=== PATIENT | female | born 1975 | race Hispanic/Latino ===

== ENCOUNTER 2017-12-21 11:31 | Inpatient (IN) | payer MEDICAID, SELFPAY ==
[2017-12-21 12:15] VITALS: BMI 32.1
[2017-12-21] MEDS ORDERED: Promethazine HCl 25 MG/ML VIAL IM PRN (12:38)
[2017-12-21] MEDS ORDERED: Ondansetron HCl/PF 4 MG/2 ML Vial IVP PRN (12:38)
[2017-12-21] MEDS ORDERED: Acetaminophen 500 MG TAB PO PRN (12:38)
[2017-12-21] MEDS ORDERED: Docusate 100 MG CAP PO PRN (12:38)
--- NOTE | 2017-12-21 12:46 | PDOC.LDHP ---
Labor and Delivery H&P Chief complaint: other (new-onset proteinuria, elev BP) HPI: Pt seen in [facility] this AM c/o severe bifrontal TINOCO last night that resolved with sleep, sudden leg edema, and found to have newly elevated BPs (145/93 at [facility]). Dipstick urine protein was 1+. Sent over for pre-e workup. Current gestational age (weeks): 38 (38.1) Due date: 01/03/18 Dating criteria: last menstrual period, first trimester ultrasound Grav: 3 Para: 1 (1 SAB) OB History Details: Pt has been managed at [facility]. Declined MFM for AMA. She at one point endorsed taking hormones to assist with . She has had normal BPs this until today. Weekly BPPs have been normal with last yesterday per pt. Hx one SAB. One vaginal delivery 13 yrs ago. Hx PPH per records. Current complications: other (AMA, glucose intolerance (1 hr 136, A1c 5.9%)) Abnormal US findings: No Past Medical History: none Current medications: pre-shiva vitamins, other (calcium) Previous surgical history: none Social history: none - Physical Exam Abnormal vital signs: BP 144/86, 147/89 General: NAD, resting Heart: RRR Lungs: nonlabored breathing Abdomen: NTTP Extremeties: normal range of motion (1+ bilateral ankle edema) FHT: category 1, acceleration absent, variability present [place] contractions every: none - OB Labs Blood type: O RH: positive Antibody Screen: negative HIV: negative RPR: negative HEPSAg: negative 1 hour GCT: negative GBS: negative Urine drug screen: not done Rubella: immune Additional Labs: GC/C neg, quant gold neg - Assessment rule out pre-eclampsia - Plan Plan: labor augmentation if indicated, observation in L&D -: Pre-eclampsia workup to be performed (CBC, CMP, urine prot/cr ratio, LDH, uric acid. Serial NSTs. BPP yesterday 08/14. No current TINOCO. New ankle edema. BPs not currently in severe range. Consider induction of labor if positive. <Gelacio Holguin - Last Filed: 12/21/17 13:11> <Malcolm Martinez - Last Filed: 12/21/17 14:59> Allergies/Adverse Reactions: Allergies Allergy/AdvReac Type Severity Reaction Status Date / Time No Known Drug Allergies Allergy Verified 12/21/17 12:11 Attending Addendum - Attending Addendum I personally evaluated the patient and discussed the management with Dr. Holguin. I agree with and repeated the History, Examination, Assessment and Plan documented above with any addition or exceptions noted below. Agree with HPI. She is having contractions q3-4m. Exam with 2+ DTRs, no clonus. BPs remain >140/90. A/P: 42 y/o @ 38w1d by LMP/10w sono with GHTN AMA Obesity Long IPI 1. Plan for induction. Discussed with patient who is in agreement. 2. Anticipate . <Malcolm Martinez - Last Filed: 12/21/17 14:59>
[2017-12-21 13:24] LABS: Hemoglobin 12.9 g/dL (12.0-16.0); Mean Corpuscular HGB CONC 34.4 g/dL (32.0-36.0); Mean Corpuscular Hemoglobin 32.4 pg (27.0-31.0); Mean Platelet Volume 7.5 fL (7.4-10.4); Platelet Count 206 thou/uL (130-400); RBC Distribution Width 13.2 % (11.5-14.5); Red Blood Cell (RBC) Count 3.97 mill/uL (4.20-5.40)
[2017-12-21 13:27] LABS: Bilirubin Negative (Negative); Blood, Urine Large (Negative); Clarity CLOUDY (Clear); Glucose, Urine (Dipstick) Negative (Negative); Leukocyte Small (Negative); Nitrite Negative (Negative); Protein, Urine (Dipstick) 30 mg/dL (Neg-Trace); Specific Gravity, Urine 1.017 (1.002-1.036); Urobilinogen 0.2 mg/dL (0.2-1.0); pH, Urine 6.5 (5.0-9.0)
[2017-12-21 13:29] LABS: Bacteria/HPF 2+ HPF (None Seen); Squamous Epithelial 21-50 HPF (0-3)
[2017-12-21 13:32] LABS: Pathc Cast-AUWi Flag 9.07 (0-2.49); Yeast-AUWi Flag 401.2 (0-25.0)
[2017-12-21 13:40] LABS: Manual Microscopic Reviewed? No Path Casts Seen; Yeast-All Forms None Seen HPF (None Seen)
[2017-12-21 13:45] LABS: Creatinine, Urine 113.91 mg/dL (47-110)
[2017-12-21 13:52] LABS: ALT (SGPT) 24 U/L (8-55); AST (SGOT) 27 U/L (5-34); Alkaline Phosphatase 177 U/L (40-150); Anion Gap 12 mmol/L (10-20); BUN (Urea Nitrogen) 13 mg/dL (7.0-18.7); Bilirubin, Total 0.3 mg/dL (0.2-1.2); Calc. Creatinine Clearance 144 mL/min (70-130); Carbon Dioxide 20 mmol/L (22-29); Chloride 109 mmol/L (98-107); Estimated GFR-MDRD Greater than 90; Globulin 2.6 g/dL (2.4-3.5); Glucose 67 mg/dL (70-105); Potassium 3.9 mmol/L (3.5-5.1); Protein, Total 5.6 g/dL (6.0-8.3); Sodium 137 mmol/L (136-145)
[2017-12-21 14:12] LABS: Hep B Surf Ag Non-Reactive S/CO (NonReactive)
[2017-12-21] MEDS ORDERED: Misoprostol 200 MCG TAB PR PRN (14:34)
[2017-12-21] MEDS ORDERED: HYDROcodone/Acetaminophen 5/325 mg Tablet PO PRN (14:34)
[2017-12-21] MEDS ORDERED: Carboprost 250 MCG/ML AMP IM PRN (14:34)
[2017-12-21] MEDS ORDERED: LR / Pitocin 40 units/1000 ml 1,000 ML IV PRN (14:34)
[2017-12-21] MEDS ORDERED: Ibuprofen 800 MG TAB PO PRN (14:34)
[2017-12-21] MEDS ORDERED: Methylergonovine 0.2 MG/ML VIAL IM PRN (14:34)
[2017-12-21] MEDS ORDERED: Lidocaine 1% (PF) 30 ML VIAL SC PRN (14:34)
--- NOTE | 2017-12-21 16:12 | PDOC.LDPN ---
Addendum entered and electronically signed by Gelacio Holguin MD 12/21/17 16 :15: Contractions are not very prominent on monitor and q3-5 min rather than 2-4 min. Original Note: Labor & Delivery Progress Note - Subjective Subjective: comfortable - Objective Abnormal vital signs: BP 145/74 General: NAD, resting Uterine fundus: non tender Dilation: 1 Effacement: 25% Station: -3 FHT: category 1 [place] contractions every: 2-4 min Plan: continue plan of care (Will give food prior to labor augmentation as she is continually asking for food. Will place cytotec if contractions ease enough to place. Contractions just became more regular in last few hours. Will give IV fluids as dehydrated per hx and labs. Recheck in 1-2 hours.) <Gelacio Holguin - Last Filed: 12/21/17 16:10> Attending Addendum - Attending Addendum I personally evaluated the patient and discussed the management with Dr. Holguin. I agree with the History, Examination, Assessment and Plan documented above with any addition or exceptions noted below. <Malcolm Martinez - Last Filed: 12/21/17 18:04>
[2017-12-21 16:49] LABS: Syphilis Antibody Nonreactive (Nonreactive); Syphilis Antibody Index 0.02 S/CO (<1.00 Non-Reactive)
[2017-12-21] MEDS: Misoprostol 100 MCG TAB VAG SCH (19:21)
[2017-12-21] MEDS: Lactated Ringer's 1,000 ML IV SCH (22:53)
[2017-12-22] MEDS ORDERED: Bupivacaine 0.5% 20 ML, Fentanyl 400 MCG in Sodium Chloride 0.9% 72 ML EPIDURAL SCH (01:00)
[2017-12-22] MEDS ORDERED: Acetaminophen 325 MG TAB PO PRN (01:27)
[2017-12-22] MEDS ORDERED: Naloxone HCl 0.4 mg/ml Vial IVP PRN ×4 (01:27→13:50)
[2017-12-22] MEDS ORDERED: Lactated Ringer's 500 ML IV PRN (01:27)
[2017-12-22] MEDS ORDERED: Eucerin (Mineral Oil/Petrolatum,White) 30 gm Jar TOP PRN ×2 (01:27→13:50)
[2017-12-22] MEDS ORDERED: Fentanyl 4mcg/Marcaine 0.1% Cassette 100 ML EPIDURAL SCH (01:30)
[2017-12-22] MEDS ORDERED: Communication Order-Pharmacy FS SCH ×2 (01:30→14:00)
--- NOTE | 2017-12-22 02:21 | PDOC.LDPN ---
Labor & Delivery Progress Note - Subjective Subjective: comfortable - Objective Vital signs reviewed and normal: yes Abnormal vital signs: BP 158/79 General: NAD, resting Uterine fundus: non tender SVE: 2:20 by cindy and nurse Dilation: 4 Effacement: 50% Station: -2 FHT: category 1, variability present [place] contractions every: q2 min - Assessment (1) Term Code(s): Z34.80 - ENCOUNTER FOR SUPRVSN OF NORMAL , UNSP TRIMESTER Current Visit: Yes Status: Acute Comment: 42 y/o at 38.1 wks presents for induction of labor due to gHTN - BP 158/70 at last check - SVE: 4/50/-2 - Kyle too often for cytotec - s/p cytotec x1 - Continue expectant management - Recheck in 3-4 hours - Consider adding pitocin if not kyle too often (2) Gestational HTN Code(s): O13.9 - GESTATIONAL HTN W/O SIGNIFICANT PROTEINURIA, UNSP TRIMESTER Current Visit: Yes Status: Acute Comment: - New proteinuria - Pre-E labs negative today - Induction of labor for gHTN (3) AMA (advanced maternal age) multigravida 35+ Code(s): O09.529 - SUPERVISION OF ELDERLY MULTIGRAVIDA, UNSPECIFIED TRIMESTER Current Visit: Yes Status: Acute (4) Obesity Code(s): E66.9 - OBESITY, UNSPECIFIED Current Visit: Yes Status: Acute <Akanksha Chun - Last Filed: 12/22/17 02:23> Attending Addendum - Attending Addendum I personally evaluated the patient and discussed the management with Dr. Chun. I agree with the History, Examination, Assessment and Plan documented above with any addition or exceptions noted below. Continue pitocin. Reassuring FHT. If concerning pressures will repeat labs, start mag, being antihypertensives. <Malcolm Martinez - Last Filed: 12/22/17 09:31>
[2017-12-22] MEDS: Lactated Ringer's 1,000 ML IV SCH ×3 (03:06→14:58)
--- NOTE | 2017-12-22 06:56 | PDOC.LDPN ---
Labor & Delivery Progress Note - Subjective Subjective: comfortable - Objective Vital signs reviewed and normal: yes Abnormal vital signs: BP 158/70 General: NAD, resting Uterine fundus: non tender SVE: 06:40 by Lay and Nurse Dilation: 6 Effacement: 50% Station: -2 FHT: category 1, variability present [place] contractions every: q2 minutes - Assessment (1) Term Code(s): Z34.80 - ENCOUNTER FOR SUPRVSN OF NORMAL , UNSP TRIMESTER Current Visit: Yes Status: Acute Comment: 42 y/o at 38.1 wks presents for induction of labor due to gHTN - BP 158/70 at last check - SVE: 6/50/-2 - Justyna too often for cytotec - s/p cytotec x1 - Continue expectant management; patient making steady change - Recheck in 2 hours - Consider checking sooner to see if head engaged to rupture membranes (2) Gestational HTN Code(s): O13.9 - GESTATIONAL HTN W/O SIGNIFICANT PROTEINURIA, UNSP TRIMESTER Current Visit: Yes Status: Acute Comment: - New proteinuria - Pre-E labs negative today - Induction of labor for gHTN (3) AMA (advanced maternal age) multigravida 35+ Code(s): O09.529 - SUPERVISION OF ELDERLY MULTIGRAVIDA, UNSPECIFIED TRIMESTER Current Visit: Yes Status: Acute (4) Obesity Code(s): E66.9 - OBESITY, UNSPECIFIED Current Visit: Yes Status: Acute <Akanksha Chun - Last Filed: 12/22/17 06:54> Attending Addendum - Attending Addendum I personally evaluated the patient and discussed the management with Dr. Chun. I agree with the History, Examination, Assessment and Plan documented above with any addition or exceptions noted below. Continued progress. FHT reassuring. Plan for AROM next check. <Malcolm Martinez - Last Filed: 12/22/17 09:32>
[2017-12-22] MEDS: Misoprostol 100 MCG TAB VAG SCH ×6 (07:37→22:44)
--- NOTE | 2017-12-22 08:44 | PDOC.LDPN ---
Labor & Delivery Progress Note - Subjective Subjective: comfortable - Objective Vital signs reviewed and normal: yes (Bps stable in 140-150. last BP 145/78) General: NAD, resting Uterine fundus: non tender Dilation: 7.5 Effacement: 50% Station: -1 FHT: category 1, variability present [place] contractions every: 2 min Procedures: Amniotomy AROM: meconium stained fluid (thin mec) - Assessment (1) AMA (advanced maternal age) multigravida 35+ Code(s): O09.529 - SUPERVISION OF ELDERLY MULTIGRAVIDA, UNSPECIFIED TRIMESTER Current Visit: Yes Status: Acute QualifierTitle: Trimester: third trimester Qualified Code(s): O09.523 - Supervision of elderly multigravida, third trimester (2) Gestational HTN Code(s): O13.9 - GESTATIONAL HTN W/O SIGNIFICANT PROTEINURIA, UNSP TRIMESTER Current Visit: Yes Status: Acute Comment: with proteinuria, but negative Pre -E work-up. Continue IOL for Gest HTN. (3) Obesity Code(s): E66.9 - OBESITY, UNSPECIFIED Current Visit: Yes Status: Acute (4) Term Code(s): Z34.80 - ENCOUNTER FOR SUPRVSN OF NORMAL , UNSP TRIMESTER Current Visit: Yes Status: Acute Plan: continue plan of care -: 42 y/o at 38.2 wks here for IOL for gest HTN-- 1) Active Labor- s/p cytotec x 1 and ctx q 2hr, AROM w/ thin mec stained fluid. 7.5/50/-1 after AROM. continue expectant mgmt. will place IUPC if ctx appear inadequate/ no cervical change made. Continue to monitor FHTs. 2) Gest HTN- last bp 145/78, cont to monitor. neg PreE workup yesterday 3) pain mgmt- continue epidural <Juani Bojorquez - Last Filed: 12/22/17 08:42> Attending Addendum - Attending Addendum I personally evaluated the patient and discussed the management with Dr. Bojorquez. I agree with the History, Examination, Assessment and Plan documented above with any addition or exceptions noted below. FHT's cat 1. Continued progress. Arom with thin mec. Continue current management and monitor pressures. <Malcolm Martinez - Last Filed: 12/22/17 09:33>
[2017-12-22] MEDS ORDERED: ePHEDrine/0.9% NaCl/PF SYRINGE 50 mg/10 ml ONE (11:11)
[2017-12-22] MEDS ORDERED: Bupivacaine HCl 0.5%/Epinephrine 1:200,000/PF 30 ml Vial ONE (11:11)
[2017-12-22] MEDS: ePHEDrine/0.9% NaCl/PF SYRINGE 50 mg/10 ml SLOW IVP PRN ×2 (11:13→11:41)
--- NOTE | 2017-12-22 11:21 | PDOC.LDPN ---
Labor & Delivery Progress Note - Objective General: NAD, resting Uterine fundus: non tender SVE: 8 Effacement: 100% Station: -1 FHT: category 2 (155, mod betsy, + accels (+accel to scalp stim), recurrent lates the last 20 minutes) [place] contractions every: q4m AROM: meconium stained fluid (thin) IUPC placed: yes FSE placed: yes Resuscitative measures: maternal oxygen, maternal IV fluids, other (ephedrine given) Plan: other (+accel to scalp stim. Epidural recently bolused with BP's 30 below recent systolics. Ephedrine and IVFB given with some improvement. Possibility of a discussed and mother voiced understanding.)
--- NOTE | 2017-12-22 11:49 | PDOC.LDPN ---
Labor & Delivery Progress Note - Subjective Subjective: comfortable, vaginal pressure - Objective Vital signs reviewed and normal: yes General: NAD, resting Uterine fundus: non tender SVE: 10:30 Dilation: 7 Effacement: 50% Station: -1 FHT: category 1, early decelerations AROM: meconium stained fluid - Assessment (1) AMA (advanced maternal age) multigravida 35+ Code(s): O09.529 - SUPERVISION OF ELDERLY MULTIGRAVIDA, UNSPECIFIED TRIMESTER Current Visit: Yes Status: Acute QualifierTitle: Trimester: third trimester Qualified Code(s): O09.523 - Supervision of elderly multigravida, third trimester (2) Gestational HTN Code(s): O13.9 - GESTATIONAL HTN W/O SIGNIFICANT PROTEINURIA, UNSP TRIMESTER Current Visit: Yes Status: Acute Comment: with proteinuria, but negative Pre -E work-up. Continue IOL for Gest HTN. (3) Term Code(s): Z34.80 - ENCOUNTER FOR SUPRVSN OF NORMAL , UNSP TRIMESTER Current Visit: Yes Status: Acute Plan: continue plan of care -: Pt /-1 on SVE @ 10:30. Cat 1 strip. Having early decelerations. Recently bolused due to pain. Pain doing much better. Pt comfortable. Will continue to monitor her. Will recheck in a few hours. <Erick Raphael - Last Filed: 12/22/17 11:51> Attending Addendum - Attending Addendum I personally evaluated the patient and discussed the management with Dr. Raphael. I agree with the History, Examination, Assessment and Plan documented above with any addition or exceptions noted below. See my note. <Malcolm Martinez - Last Filed: 12/22/17 12:15>
--- NOTE | 2017-12-22 12:17 | PDOC.LDPN ---
Labor & Delivery Progress Note - Objective General: NAD, resting FHT: category 2, variable decelerations, variability present [place] contractions every: q2-3m Plan: continue plan of care (160, moderate variability, + accelerations, early and variable decels. Recheck in 30 minutes. FHT improved after resuscitation.)
--- NOTE | 2017-12-22 12:49 | PDOC.LDPN ---
Labor & Delivery Progress Note - Objective General: NAD Dilation: 8/ Effacement: 100% Station: -1 FHT: category 2, variable decelerations, late decelerations, variability present [place] contractions every: q2-3m Plan: other (Still with persistent cat 2, now with recurrent variables and intermittent lates. CD called for FTP and NRFHT. Anesthesia notified and said they are busy for 45 minutes in the other ORs.)
[2017-12-22] MEDS ORDERED: CEFAZOLIN/Water 2 GM/20 ML SYRINGE SLOW IVP SCH (13:00)
[2017-12-22] MEDS ORDERED: Azithromycin 500 MG in Sodium Chloride 0.9% 250 ML 250 ML IVPB SCH (13:00)
[2017-12-22] MEDS ORDERED: Bicitra 30 ML UDCUP PO SCH (13:00)
[2017-12-22] MEDS ORDERED: Oxytocin 10 UNITS/ML VIAL ONE (13:08)
--- NOTE | 2017-12-22 13:14 | PDOC.EVN ---
Event Note - Event Note Event Note: Called by RN as patient complete. Exam 9/c/-1, attempted to reduce during pushes. Unsuccessful. FHTs down to 80-90's for 7 minutes. Changed to STAT, to OR.
[2017-12-22] MEDS ORDERED: Morphine PF 1 MG/ML SYR ONE (13:19)
[2017-12-22 13:42] LABS: Actual Bicarbonate (HCO3a) 23.9 mEq/L (22-26); Analyzer IN Cardio OR; Base Excess (BEa) -3.1 mEq/L (0 (+/-) 2.5)
[2017-12-22] MEDS ORDERED: Ondansetron HCl/PF 4 MG/2 ML Vial ONE ×2 (13:42→13:44)
[2017-12-22] MEDS ORDERED: Lidocaine 2% MPF 10 ML AMP (For Epidural Use) ONE (13:44)
[2017-12-22] MEDS ORDERED: Ketorolac Tromethamine 30 MG/ML VIAL ONE ×2 (13:44→14:01)
[2017-12-22] MEDS ORDERED: PHENYLEPHRINE-NS 100 MCG/ML 10 ML SYRINGE ONE ×2 (13:44→14:07)
[2017-12-22] MEDS ORDERED: Meperidine HCl/PF 25 MG/ML VIAL SLOW IVP PRN (13:50)
[2017-12-22] MEDS ORDERED: Promethazine HCl 25 MG SUPP PR PRN (13:50)
[2017-12-22] MEDS ORDERED: Promethazine HCl 25 MG/ML VIAL IM PRN (13:50)
[2017-12-22] MEDS ORDERED: HYDROmorphone 2 MG/ML VIAL SLOW IVP PRN (13:50)
[2017-12-22] MEDS ORDERED: Ketorolac Tromethamine 30 MG/ML VIAL IVP PRN (13:50)
[2017-12-22] MEDS ORDERED: Ondansetron HCl/PF 4 MG/2 ML Vial IVP PRN ×2 (13:50)
[2017-12-22] MEDS ORDERED: Naloxone HCl 0.4 mg/ml Vial IV PRN (13:50)
[2017-12-22] MEDS ORDERED: diphenhydrAMINE 50 MG/ML VIAL IVP PRN (13:50)
[2017-12-22] MEDS ORDERED: Methylergonovine 0.2 MG/ML VIAL ONE (13:56)
[2017-12-22] MEDS ORDERED: Ketorolac Tromethamine 30 MG/ML VIAL IVP SCH (14:00)
--- NOTE | 2017-12-22 15:38 | CON ---
DATE OF CONSULTATION: 12/22/2017 OPERATIVE CONSULTATION I was asked to come to the OR to evaluate Ms. Aaron. She is a 42-year-old G3, P1-0-1-1 at term, who was brought back for section by the Family Practice staff for failure to progr ess and non-reassuring tracing. I was asked specifically to evaluate the hysterotomy incision for ex tension. At the time I scrubbed, there were no significant extensions of the incision and the bladde r was clearly free of both the anterior and posterior edges. I helped the residents and staff reappr oximate this area hemostatically. Again, the bladder was seen to be intact. There were no extension s posteriorly in the uterus and good hemostasis was noted at the conclusion of my participation.
[2017-12-22] MEDS ORDERED: Morphine 10 MG/ML VIAL ONE (15:40)
--- NOTE | 2017-12-22 15:57 | OP-2 ---
DATE OF PROCEDURE: 12/22/2017 RESIDENT SURGEON: Surinder Green M.D. ELECTRIC METER READER SURGEONS: Juani Bojorquez D.O., Erick Raphael MD ATTENDING SURGEON: Malcolm Martinez MD WASTEWATER ANALYST LAB ANALYST SURGEON: Arpit Iniguez M.D. PROCEDURE: Primary low transverse . PREOPERATIVE DIAGNOSES: 1. Term intrauterine . 2. Induction of labor due to gestational hypertension. 3. Persistent category 2 heart tracing. 4. Advanced maternal age. POSTOPERATIVE DIAGNOSES: 1. Term intrauterine , delivered. 2. hemorrhage. 3. Gestational hypertension. 4. Persistent category 2 tracing. 5. Advanced maternal age. ANESTHESIA: Epidural with bolus. INDICATIONS: Ms. Aaron is a 42-year-old G3, P1-0-1-1 at 38.1 weeks by last menstrual period confirmed with 10-week ultrasound, who presented for induction of labor due to new onset gestational hypertension. After attempting induction of labor, baby begin to have a persistent category 2 strip at which time it was determined that section would be the best option for maternal and wellbeing. PROCEDURE IN DETAIL: The patient provided informed consent after risks, benefits, and alternatives were explained. Preoperative antibiotics of cefazolin 2 grams IV were administered. The patient was taken to the OR after her epidural was bolused and prepped and draped in the usual sterile fashion. A Pfannenstiel incision was made and carried down to the level of the fascia. Subcutaneous tissues were bluntly dissected away from the fascia. Fascia was sharply nicked with a scalpel and the fascia was then extended superior laterally using blunt dissection. The superior edge was elevated with Jocelynn clamps and bluntly dissected free from the muscle. The abdominal cavity was entered bluntly and retracted manually. Bladder blade was placed and the lower uterine segment was identified. A bladder flap was formed using Metzenbaum scissors and the bladder blade was replaced. A low transverse score was made with the scalpel and the intrauterine cavity was entered on the first pass. The hysterotomy was extended in the cranio/caudal fashion. The head was manually extracted. The infant was noted to be in the vertex position. The head was manually extracted and the remainder of the body was delivered with fundal pressure. A normal female was handed to the waiting team. Cord gas and blood were obtained. At this time, the neonatology team reported that the infant had a small abrasion on the posterior left scapula from entering into the uterus. It was noted to be hemostatic and no additional interventions are needed. The uterus was externalized and curetted with a dry lap. Hysterotomy was inspected and a small extension of the hysterotomy along the right edge was noted. The extension was reapproximated using #1 Monocryl suture in the running locking fashion. At this time, the attention was turned to the left side of the hysterotomy. A small venous bleeding vessel noted on the posterior uterine wall and was made hemostatic with a single figure-of- eight suture using #1 Monocryl. The remainder of the hysterotomy was closed using a running locking #1 Monocryl. At this time, there was a small area of uterine muscle fiber abrasion noted on the lower segment. This was noted to have 2 small bleeding vessels within it and was closed using two figure-of- eight sutures with 2-0 Monocryl. The hysterotomy was again inspected and noted to be hemostatic. Posterior uterus was inspected and a small superficial abrasion was noted to be bleeding. This was controlled with Bovie cautery. The uterus was then internalized. Hysterotomy was inspected and noted to be hemostatic. Fascia was closed using a running nonlocking 0 PDS suture. Subcutaneous tissues were irrigated and reapproximated using a 2-0 Monocryl in a running locking fashion. The skin was reapproximated using a running subcuticular 4-0 Monocryl stitch and skin was also covered with Dermabond. A pressure bandage was applied. All counts were correct x3. The patient tolerated the procedure well and went to the recovery room in stable condition. ESTIMATED BLOOD LOSS: 1000 mL FLUIDS GIVEN: Approximately 1200 mL of crystalloid. COMPLICATIONS: 1. hemorrhage. 2. Small right uterine hysterotomy extension that was reapproximated without difficulty. SPECIMENS: Cord, blood, and gas were sent to the lab for analysis and blood typing. FINDINGS: Grossly normal female born at 1329 hours with Apgars of 8 and 9 at 1 and 5 minutes respectively. A small abrasion was noted under the left scapula that occurred when entering into uterus. Placental calcifications and a three-vessel cord was noted and sent to the lab for analysis. A Cha catheter with blood-tinged and that was present prior to the onset of the procedure. There was no concern for bladder injury during the . Dr. Iniguez was consulted during the procedure to evaluate the hemostasis of the extension. Dr. Martinez was present for the entire procedure. ADONIS
[2017-12-22 16:00] LABS: Hemoglobin 13.1 g/dL (12.0-16.0); Mean Corpuscular HGB CONC 33.5 g/dL (32.0-36.0); Mean Corpuscular Volume 95.7 fl (81.0-99.0); Mean Platelet Volume 7.5 fL (7.4-10.4); Platelet Count 203 thou/uL (130-400); RBC Distribution Width 13.2 % (11.5-14.5); Red Blood Cell (RBC) Count 4.11 mill/uL (4.20-5.40); White Blood Cell (WBC) Count 15.9 thou/uL (4.8-10.8)
[2017-12-22 16:19] LABS: ALT (SGPT) 25 U/L (8-55); AST (SGOT) 28 U/L (5-34); Albumin 2.7 g/dL (3.5-5.0); Alkaline Phosphatase 166 U/L (40-150); Anion Gap 11 mmol/L (10-20); BUN (Urea Nitrogen) 14 mg/dL (7.0-18.7); Bilirubin, Total 0.6 mg/dL (0.2-1.2); Calc. Creatinine Clearance 122 mL/min (70-130); Calcium 8.8 mg/dL (7.8-10.44); Carbon Dioxide 20 mmol/L (22-29); Chloride 107 mmol/L (98-107); Estimated GFR-MDRD 85; Globulin 2.4 g/dL (2.4-3.5); Glucose 89 mg/dL (70-105); Protein, Total 5.1 g/dL (6.0-8.3); Sodium 134 mmol/L (136-145)
[2017-12-22 16:37] LABS: Creatinine, Urine 56.7 mg/dL (47-110)
[2017-12-22] MEDS ORDERED: Calcium Gluconate 4.6 MEQ in Sodium Chloride 0.9% 100 ML IVPB PRN (17:16)
[2017-12-22] MEDS ORDERED: Magnesium Sulfate 20 GM/WATER 500 ML BAG IVPB SCH (17:30)
[2017-12-22] MEDS: Labetalol HCl 100 MG/20 ML VIAL SLOW IVP PRN ×2 (17:50→21:35)
--- NOTE | 2017-12-22 19:27 | PDOC.PP ---
Post Progress Note Post Day #: 0 Subjective: Pt reports being dizzy. yet she has been dizzy throughout the entire labor as well. Denies any sx's of lightheadness, weakness, blurry vision. Denies any vision changes. Reports having some pain in her scar site. No other problems at this time. PO intake tolerated: no (Still post op. Has not gotten food yet) Vital Signs (12 hours) Temp Pulse Resp BP 12/22/17 17:50 86 177/93 H 12/22/17 17:34 98.2 F 86 18 Weight Weight 79.832 kg - Physical Examination General: NAD Cardiovascular: no m/r/g, RRR Respiratory: clear to auscultation bilaterally, non-labored breathing Abdominal: + bowel sounds, no distention, appropriately TTP Skin: CS incision dry & intact Neurological: no gross focal deficits Deviation from normal: DTR normal in upper and lower extremities. No clonus. Psychiatric: A&Ox3, normal affect Result Diagrams: 12/22/17 15:50 12/22/17 15:50 Additional Labs: Post Labs Blood Type O POSITIVE 12/21/17 12:54 Hep Bs Antigen Non-Reactive S/CO (NonReactive) 12/21/17 12:54 (1) AMA (advanced maternal age) multigravida 35+ Code(s): O09.529 - SUPERVISION OF ELDERLY MULTIGRAVIDA, UNSPECIFIED TRIMESTER Status: Acute QualifierTitle: Trimester: third trimester Qualified Code(s): O09.523 - Supervision of elderly multigravida, third trimester (2) Gestational HTN Code(s): O13.9 - GESTATIONAL HTN W/O SIGNIFICANT PROTEINURIA, UNSP TRIMESTER Status: Acute QualifierTitle: Trimester: third trimester Qualified Code(s): O13.3 - Gestational [-induced] hypertension without significant proteinuria, third trimester Comment: with proteinuria, but negative Pre-E work-up. Continue IOL for Gest HTN. (3) delivery delivered Code(s): O82 - ENCOUNTER FOR DELIVERY WITHOUT INDICATION Status: Acute (4) Pre-eclampsia, severe, delivered Code(s): O14.10 - SEVERE PRE-ECLAMPSIA, UNSPECIFIED TRIMESTER Status: Acute (5) Term Code(s): Z34.80 - ENCOUNTER FOR SUPRVSN OF NORMAL , UNSP TRIMESTER Status: Acute - Assessment/Plan This is a 42 yo now that delivered via PLTCS @ 13:29 due to nonreassuring heart tones. She is AMA and is obese. Has had Gestational HTN during . Pressures before delivery were ranging from 130 to 150. No severes noted. Post she had two severe pressures above 160. Preeclampsia labs were rechecked. Cr was abnormal at .7. Urine Pr/Cr was 1.4. Urine output was low. At this time she became Preeclamptic with severe features. -Have started her on Mg. -Initial exam shows normal DTR. No clonus. Reports dizziness. Will do mg checks Q4 hrs. -Will continue to monitor urinary output -Uric acid pending PLTCS delivered -Incision dressed at this time. No sign of acute bleed. -Pt having a little bit of pain. Has [place], Tylenol and Ibuprofen as needed. Will continue to monitor and tx <Erick Raphael - Last Filed: 12/22/17 19:24> Vital Signs (12 hours) Temp Pulse Resp BP 12/23/17 08:00 98.8 F 84 18 12/23/17 04:00 98.7 F 86 18 12/23/17 00:00 98.7 F 86 18 12/22/17 21:35 86 163/82 H Weight Weight 79.832 kg Result Diagrams: 12/22/17 15:50 12/22/17 15:50 Additional Labs: Post Labs Blood Type O POSITIVE 12/21/17 12:54 Hep Bs Antigen Non-Reactive S/CO (NonReactive) 12/21/17 12:54 <Malcolm Martinez - Last Filed: 12/23/17 08:47> Attending Addendum - Attending Addendum I personally evaluated the patient and discussed the management with Dr. Raphael. I agree with the History, Examination, Assessment and Plan documented above with any addition or exceptions noted below. s/p PLTCS for FTP/NRFHT induced for gHTN now with superimposed preeclampsia with severe features. Mg started, labetalol x 1 given. Neurochecks/seizure precautions/BP checks/Mg levels/Strict I&Os. Discussed with Dr. Clarke who is proctoring. <Malcolm Martinez - Last Filed: 12/23/17 08:47>
--- NOTE | 2017-12-22 21:10 | PDOC.PP ---
Post Progress Note Post Day #: 1 Subjective: Philippe Aaron seen a bedside for mag check. She is doing well, has no complaints. She denies confusion, vision changes, chest pain, dyspnea, n/v/d. PO intake tolerated: yes Vital Signs (12 hours) Temp Pulse Resp BP 12/22/17 19:20 98.7 F 86 18 12/22/17 17:50 86 177/93 H 12/22/17 17:34 98.2 F 86 18 Weight Weight 79.832 kg - Physical Examination General: NAD Cardiovascular: no m/r/g, RRR Respiratory: clear to auscultation bilaterally, non-labored breathing Abdominal: + bowel sounds, appropriately TTP Skin: CS incision dry & intact Neurological: no gross focal deficits (Normal DTRs) Psychiatric: A&Ox3, normal affect (Normal mentation) Result Diagrams: 12/22/17 15:50 12/22/17 15:50 Additional Labs: Post Labs Blood Type O POSITIVE 12/21/17 12:54 Hep Bs Antigen Non-Reactive S/CO (NonReactive) 12/21/17 12:54 (1) AMA (advanced maternal age) multigravida 35+ Code(s): O09.529 - SUPERVISION OF ELDERLY MULTIGRAVIDA, UNSPECIFIED TRIMESTER Status: Acute QualifierTitle: Trimester: third trimester Qualified Code(s): O09.523 - Supervision of elderly multigravida, third trimester (2) delivery delivered Code(s): O82 - ENCOUNTER FOR DELIVERY WITHOUT INDICATION Status: Acute (3) Gestational HTN Code(s): O13.9 - GESTATIONAL HTN W/O SIGNIFICANT PROTEINURIA, UNSP TRIMESTER Status: Acute QualifierTitle: Trimester: third trimester Qualified Code(s): O13.3 - Gestational [-induced] hypertension without significant proteinuria, third trimester Comment: with proteinuria, but negative Pre-E work-up. Continue IOL for Gest HTN. (4) Obesity Code(s): E66.9 - OBESITY, UNSPECIFIED Status: Acute (5) Pre-eclampsia, severe, delivered Code(s): O14.10 - SEVERE PRE-ECLAMPSIA, UNSPECIFIED TRIMESTER Status: Acute (6) Term Code(s): Z34.80 - ENCOUNTER FOR SUPRVSN OF NORMAL , UNSP TRIMESTER Status: Acute - Assessment/Plan This is a 42 yo now that delivered via PLTCS @ 13:29 due to nonreassuring heart tones. She is AMA and is obese. Has had Gestational HTN during . Pressures before delivery were ranging from 130 to 150. No severes noted. Post she had two severe pressures above 160. Preeclampsia labs were rechecked. Cr was abnormal at .7. Urine Pr/Cr was 1.4. Urine output was low. At this time she became Preeclamptic with severe features. Was started on Mag at 1745. Normal DTRs, no clonus, urine output has been 50 mls over the last hour. BPs have been ranging in the 150s/80s. Patient getting IV Labetalol. <Joel Meier - Last Filed: 12/22/17 21:14> Vital Signs (12 hours) Temp Pulse Resp BP 12/23/17 08:00 98.8 F 84 18 12/23/17 04:00 98.7 F 86 18 12/23/17 00:00 98.7 F 86 18 12/22/17 21:35 86 163/82 H Weight Weight 79.832 kg Result Diagrams: 12/22/17 15:50 12/22/17 15:50 Additional Labs: Post Labs Blood Type O POSITIVE 12/21/17 12:54 Hep Bs Antigen Non-Reactive S/CO (NonReactive) 12/21/17 12:54 <Malcolm Martinez - Last Filed: 12/23/17 08:48> Attending Addendum - Attending Addendum I personally evaluated the patient and discussed the management with Dr. Meier. I agree with the History, Examination, Assessment and Plan documented above with any addition or exceptions noted below. Continue mag, labetalol if pressures warrant treatment. Monitor closely. Dr. Clarke proctimothy. <Malcolm Martinez - Last Filed: 12/23/17 08:48>
[2017-12-22] MEDS ORDERED: NIFEdipine 10 MG CAP PO SCH (23:45)
--- NOTE | 2017-12-23 01:53 | PDOC.PP ---
Post Progress Note Post Day #: 2 Subjective: Philippe Aaron seen at bedside at 0100 on 12/23/17 for mag check. She is doing well, baby. No complaints. Denies headaches, vision changes , chest pain, dyspnea, n/v/d. Blood pressures have been ranging from 137/63 to 156/86 since last check. Urine output is still 50-100 ml/hr. PO intake tolerated: yes Vital Signs (12 hours) Temp Pulse Resp BP 12/23/17 00:00 98.7 F 86 18 12/22/17 21:35 86 163/82 H 12/22/17 19:20 98.7 F 86 18 12/22/17 17:50 86 177/93 H 12/22/17 17:34 98.2 F 86 18 Weight Weight 79.832 kg - Physical Examination General: NAD Cardiovascular: no m/r/g, RRR Respiratory: clear to auscultation bilaterally, non-labored breathing Abdominal: + bowel sounds, appropriately TTP Skin: CS incision dry & intact Neurological: no gross focal deficits (no clonus, normal DTRs) Psychiatric: A&Ox3, normal affect Result Diagrams: 12/22/17 15:50 12/22/17 15:50 Additional Labs: Post Labs Blood Type O POSITIVE 12/21/17 12:54 Hep Bs Antigen Non-Reactive S/CO (NonReactive) 12/21/17 12:54 (1) AMA (advanced maternal age) multigravida 35+ Code(s): O09.529 - SUPERVISION OF ELDERLY MULTIGRAVIDA, UNSPECIFIED TRIMESTER Status: Acute QualifierTitle: Trimester: third trimester Qualified Code(s): O09.523 - Supervision of elderly multigravida, third trimester (2) delivery delivered Code(s): O82 - ENCOUNTER FOR DELIVERY WITHOUT INDICATION Status: Acute (3) Gestational HTN Code(s): O13.9 - GESTATIONAL HTN W/O SIGNIFICANT PROTEINURIA, UNSP TRIMESTER Status: Acute QualifierTitle: Trimester: third trimester Qualified Code(s): O13.3 - Gestational [-induced] hypertension without significant proteinuria, third trimester Comment: with proteinuria, but negative Pre-E work-up. Continue IOL for Gest HTN. (4) Obesity Code(s): E66.9 - OBESITY, UNSPECIFIED Status: Acute (5) Pre-eclampsia, severe, delivered Code(s): O14.10 - SEVERE PRE-ECLAMPSIA, UNSPECIFIED TRIMESTER Status: Acute (6) Term Code(s): Z34.80 - ENCOUNTER FOR SUPRVSN OF NORMAL , UNSP TRIMESTER Status: Acute - Assessment/Plan Continue Mag, continue monitoring BPs and urine output, and re-examining q4h. No changes at this time. <Joel Meier - Last Filed: 12/23/17 01:50> Vital Signs (12 hours) Temp Pulse Resp 12/23/17 08:00 98.8 F 84 18 12/23/17 04:00 98.7 F 86 18 12/23/17 00:00 98.7 F 86 18 Weight Weight 79.832 kg Result Diagrams: 12/22/17 15:50 12/22/17 15:50 Additional Labs: Post Labs Blood Type O POSITIVE 12/21/17 12:54 Hep Bs Antigen Non-Reactive S/CO (NonReactive) 12/21/17 12:54 <Malcolm Martinez - Last Filed: 12/23/17 10:11> Attending Addendum - Attending Addendum I personally evaluated the patient and discussed the management with team. I agree with the History, Examination, Assessment and Plan documented above with any addition or exceptions noted below. Continue current management. Dr. Vince mai. <Malcolm Martinez - Last Filed: 12/23/17 10:11>
[2017-12-23] MEDS: Magnesium Sulfate 20 gm/500 ml 20 GM/500 ML BAG IVPB SCH ×2 (02:10→11:40)
[2017-12-23] MEDS: Lactated Ringer's 1,000 ML IV SCH ×2 (06:35→11:40)
[2017-12-23] MEDS: Misoprostol 100 MCG TAB VAG SCH ×3 (06:36→08:34)
--- NOTE | 2017-12-23 07:11 | PDOC.PP ---
Post Progress Note Post Day #: 1 Subjective: Feeling well aside from being hungry. No headache, SOB, CP, abd pain, LE edema or vision changes. No concerns at this time. PO intake tolerated: yes Flatus: yes Ambulation: yes Vital Signs (12 hours) Temp Pulse Resp BP 12/23/17 04:00 98.7 F 86 18 12/23/17 00:00 98.7 F 86 18 12/22/17 21:35 86 163/82 H 12/22/17 19:20 98.7 F 86 18 Weight Weight 79.832 kg - Physical Examination General: NAD Cardiovascular: no m/r/g, RRR Respiratory: clear to auscultation bilaterally, non-labored breathing Abdominal: lochia (minimal lochia rubra), no distention, appropriately TTP Fundus firm & at: umbilicus Extremities: negative homans (B) (no LE edema) Neurological: no gross focal deficits (DTR 3+/4 (hyperreflexic)) Psychiatric: normal affect Result Diagrams: 12/22/17 15:50 12/22/17 15:50 Additional Labs: Post Labs Blood Type O POSITIVE 12/21/17 12:54 Hep Bs Antigen Non-Reactive S/CO (NonReactive) 12/21/17 12:54 (1) delivery delivered Code(s): O82 - ENCOUNTER FOR DELIVERY WITHOUT INDICATION Status: Acute (2) Pre-eclampsia, severe, delivered Code(s): O14.10 - SEVERE PRE-ECLAMPSIA, UNSPECIFIED TRIMESTER Status: Acute (3) AMA (advanced maternal age) multigravida 35+ Code(s): O09.529 - SUPERVISION OF ELDERLY MULTIGRAVIDA, UNSPECIFIED TRIMESTER Status: Acute QualifierTitle: Trimester: third trimester Qualified Code(s): O09.523 - Supervision of elderly multigravida, third trimester (4) Gestational HTN Code(s): O13.9 - GESTATIONAL HTN W/O SIGNIFICANT PROTEINURIA, UNSP TRIMESTER Status: Acute QualifierTitle: Trimester: third trimester Qualified Code(s): O13.3 - Gestational [-induced] hypertension without significant proteinuria, third trimester Comment: with proteinuria, but negative Pre-E work-up. Continue IOL for Gest HTN. (5) Obesity Code(s): E66.9 - OBESITY, UNSPECIFIED Status: Acute - Assessment/Plan 42yo now s/p PLTCS for FTP and NRFHTs with preE w/ severe features-- 1) tIUP, delivered via - pp course as anticipated thus far with minimal bleeding. 2) preE w/ severe features- on mag sulfate currently with no signs of mag toxicity. BPs improved overnight and after labetolol. current BPs 144/72-113/ 67. UOP improving 100-200ml/hr currently. cont q4hr mag checks and likely d/c 24hr pp pending adequate diuresis. <Juani Bojorquez - Last Filed: 12/23/17 07:09> Vital Signs (12 hours) Temp Pulse Resp 12/23/17 08:00 98.8 F 84 18 12/23/17 04:00 98.7 F 86 18 12/23/17 00:00 98.7 F 86 18 Weight Weight 79.832 kg Result Diagrams: 12/22/17 15:50 12/22/17 15:50 Additional Labs: Post Labs Blood Type O POSITIVE 12/21/17 12:54 Hep Bs Antigen Non-Reactive S/CO (NonReactive) 12/21/17 12:54 <Malcolm Martinez - Last Filed: 12/23/17 10:12> Attending Addendum - Attending Addendum I personally evaluated the patient and discussed the management with team. I agree with the History, Examination, Assessment and Plan documented above with any addition or exceptions noted below. Continue current management. Dr. Vince mai. <Malcolm Martinez - Last Filed: 12/23/17 10:12>
[2017-12-23] MEDS ORDERED: NIFEdipine XL 30 MG TAB PO SCH (09:00)
--- NOTE | 2017-12-23 09:27 | PDOC.PP ---
Post Progress Note Post Day #: 1 Subjective: Pt denies complaints this AM. Resting well. her baby. No headache , SOB, CP, abd pain, LE edema or vision changes. PO intake tolerated: yes Flatus: yes Ambulation: yes Vital Signs (12 hours) Temp Pulse Resp BP 12/23/17 08:00 98.8 F 84 18 12/23/17 04:00 98.7 F 86 18 12/23/17 00:00 98.7 F 86 18 12/22/17 21:35 86 163/82 H Weight Weight 79.832 kg - Physical Examination General: NAD Cardiovascular: no m/r/g, RRR Respiratory: clear to auscultation bilaterally, non-labored breathing Abdominal: + bowel sounds, lochia, no distention, appropriately TTP Skin: CS incision dry & intact Neurological: no gross focal deficits Psychiatric: normal affect Result Diagrams: 12/22/17 15:50 12/22/17 15:50 Additional Labs: Post Labs Blood Type O POSITIVE 12/21/17 12:54 Hep Bs Antigen Non-Reactive S/CO (NonReactive) 12/21/17 12:54 (1) delivery delivered Code(s): O82 - ENCOUNTER FOR DELIVERY WITHOUT INDICATION Status: Acute Comment: PP course as anticipated thus far with minimal bleeding. (2) Pre-eclampsia, severe, delivered Code(s): O14.10 - SEVERE PRE-ECLAMPSIA, UNSPECIFIED TRIMESTER Status: Acute Comment: Severe range BPs after delivery and UP/Cr ratio 1.5. On mag sulfate currently with no signs of mag toxicity. BPs improved overnight and after labetolol. Last elevated BP 142/66 @ 0444. UOP 100-200ml/hr currently. Reflexes 3+. Cont q4hr mag checks and likely d/c at 24 pending adequate diuresis. (3) AMA (advanced maternal age) multigravida 35+ Code(s): O09.529 - SUPERVISION OF ELDERLY MULTIGRAVIDA, UNSPECIFIED TRIMESTER Status: Acute QualifierTitle: Trimester: third trimester Qualified Code(s): O09.523 - Supervision of elderly multigravida, third trimester (4) Gestational HTN Code(s): O13.9 - GESTATIONAL HTN W/O SIGNIFICANT PROTEINURIA, UNSP TRIMESTER Status: Acute QualifierTitle: Trimester: third trimester Qualified Code(s): O13.3 - Gestational [-induced] hypertension without significant proteinuria, third trimester Comment: Progressed to pre-e with severe features. (5) Obesity Code(s): E66.9 - OBESITY, UNSPECIFIED Status: Acute <Gelacio Holguin - Last Filed: 12/23/17 11:01> Vital Signs (12 hours) Temp Pulse Resp 12/23/17 08:00 98.8 F 84 18 12/23/17 04:00 98.7 F 86 18 12/23/17 00:00 98.7 F 86 18 Weight Weight 79.832 kg Result Diagrams: 12/22/17 15:50 12/22/17 15:50 Additional Labs: Post Labs Blood Type O POSITIVE 12/21/17 12:54 Hep Bs Antigen Non-Reactive S/CO (NonReactive) 12/21/17 12:54 <Malcolm Martinez - Last Filed: 12/23/17 11:08> Attending Addendum - Attending Addendum I personally evaluated the patient and discussed the management with Dr. Holguin. I agree with and repeated the History, Examination, Assessment and Plan documented above with any addition or exceptions noted below. Continue mag x 24h, continue close monitoring. Dr. Vince mai. <Malcolm Martinez - Last Filed: 12/23/17 11:08>
[2017-12-23] MEDS ORDERED: Morphine 10 MG/ML VIAL ONE (10:01)
--- NOTE | 2017-12-23 14:31 | PDOC.PP ---
Post Progress Note Post Day #: 1 Subjective: 42 yo s/pPLTCS for NRFHT @ 1329 on 12/22, found to have preeclampia with severe features s/p delivery. Mg started yesterday 1744. Pt is doing well. Urinating adequately. Denies headache, chest pain, shortness of breath, or vision changes. PO intake tolerated: no (liquids only) Flatus: no Ambulation: no Vital Signs (12 hours) Temp Pulse Resp 12/23/17 11:53 98.8 F 84 18 12/23/17 08:00 98.8 F 84 18 12/23/17 04:00 98.7 F 86 18 Weight Weight 79.832 kg - Physical Examination General: NAD Cardiovascular: no m/r/g, RRR Respiratory: clear to auscultation bilaterally, non-labored breathing Abdominal: appropriately TTP Neurological: no gross focal deficits (normoreflexive) Psychiatric: A&Ox3, normal affect Result Diagrams: 12/22/17 15:50 12/22/17 15:50 Additional Labs: Post Labs Blood Type O POSITIVE 12/21/17 12:54 Hep Bs Antigen Non-Reactive S/CO (NonReactive) 12/21/17 12:54 (1) AMA (advanced maternal age) multigravida 35+ Code(s): O09.529 - SUPERVISION OF ELDERLY MULTIGRAVIDA, UNSPECIFIED TRIMESTER Status: Acute QualifierTitle: Trimester: third trimester Qualified Code(s): O09.523 - Supervision of elderly multigravida, third trimester (2) delivery delivered Code(s): O82 - ENCOUNTER FOR DELIVERY WITHOUT INDICATION Status: Acute Comment: PP course as anticipated thus far with minimal bleeding. (3) Gestational HTN Code(s): O13.9 - GESTATIONAL HTN W/O SIGNIFICANT PROTEINURIA, UNSP TRIMESTER Status: Acute QualifierTitle: Trimester: third trimester Qualified Code(s): O13.3 - Gestational [-induced] hypertension without significant proteinuria, third trimester Comment: Progressed to pre-e with severe features. (4) Pre-eclampsia, severe, delivered Code(s): O14.10 - SEVERE PRE-ECLAMPSIA, UNSPECIFIED TRIMESTER Status: Acute Comment: Severe range BPs after delivery and UP/Cr ratio 1.5. On mag sulfate currently with no signs of mag toxicity. BPs improved overnight and after labetolol. Last elevated BP 142/66 @ 0444. UOP 100-200ml/hr currently. Reflexes 3+. Cont q4hr mag checks and likely d/c at 24 pending adequate diuresis. - Assessment/Plan 42 yo s/pPLTCS for NRFHT @ 1329 on 12/22, found to have preeclampia with severe features s/p delivery. 1.)PreE with severe features- BP controlled and within normal limits over past 3-4 hours. Mg started yesterday 1744. Pt is doing well. Urinating adequately ~600/hr over the past 2 hours. Denies headache, vision changes. Plan to dc mg today at ~1745 <Sole Souza - Last Filed: 12/23/17 14:34> Vital Signs (12 hours) Temp Pulse Resp 12/23/17 11:53 98.8 F 84 18 12/23/17 08:00 98.8 F 84 18 Weight Weight 79.832 kg Result Diagrams: 12/22/17 15:50 12/22/17 15:50 Additional Labs: Post Labs Blood Type O POSITIVE 12/21/17 12:54 Hep Bs Antigen Non-Reactive S/CO (NonReactive) 12/21/17 12:54 <Malcolm Martinez - Last Filed: 12/23/17 16:08> Attending Addendum - Attending Addendum I personally evaluated the patient and discussed the management with Dr. Renee. I agree with the History, Examination, Assessment and Plan documented above with any addition or exceptions noted below. D/c mag when indicated. Good UOP and course. <Malcolm Martinez - Last Filed: 12/23/17 16:08>
[2017-12-23] MEDS ORDERED: diphenhydrAMINE 25 MG CAP PO PRN (17:57)
[2017-12-23] MEDS ORDERED: Zolpidem Tartrate 5 MG TAB PO PRN (17:57)
[2017-12-23] MEDS ORDERED: Adacel (T-DAP) 0.5 ML VIAL IM ONE (17:57)
[2017-12-23] MEDS ORDERED: Simethicone Chewable 80 MG TAB PO PRN (17:57)
[2017-12-23] MEDS ORDERED: Lanolin Ointment 7 GM TUBE TOP PRN (17:57)
[2017-12-23] MEDS ORDERED: Ibuprofen 800 MG TAB PO SCH (17:57)
[2017-12-23] MEDS: Ferrous Sulfate 325 MG TAB PO SCH ×2 (18:06→21:17)
[2017-12-23] MEDS: Prenatal Vitamin 1 TAB PO SCH (18:06)
--- NOTE | 2017-12-23 20:31 | PDOC.EVN ---
Event Note - Event Note Event Note: S: 42 yo s/pPLTCS for NRFHT @ 1329 on 12/22, found to have preeclampia with severe features s/p delivery. Mg started yesterday 1744, Mag discontinued at 174 today. Pt is doing well. Urinating adequately. She has remained normotensive. Denies headache, chest pain, shortness of breath, or vision changes. O: Gen: No acute distress, resting in bed CV: RRR no murmurs, gallops Resp: CTAB no wheezes, rales, rhonchi Neuro: 2+ DTRs b/l, no clonus Ext: No edema A/P: Pre-E with severe features: Blood pressure has remained controlled with good urine output Mag d/c'd at 174, d/c linda now Continue to monitor on Post- <Joel Meier - Last Filed: 12/23/17 20:27> Attending Addendum - Attending Addendum I personally evaluated the patient and discussed the management with Dr. Meier I agree with the History, Examination, Assessment and Plan documented above with any addition or exceptions noted below. ABrayMD <Cielo Hernandez - Last Filed: 12/24/17 07:20>
[2017-12-24] MEDS: HYDROcodone/Acetaminophen 5/325 mg Tablet PO PRN ×3 (04:33→22:29)
[2017-12-24 05:48] LABS: Hemoglobin 10.7 g/dL (12.0-16.0); Mean Corpuscular HGB CONC 33.5 g/dL (32.0-36.0); Mean Corpuscular Hemoglobin 32.2 pg (27.0-31.0); Mean Platelet Volume 7.5 fL (7.4-10.4); Platelet Count 191 thou/uL (130-400); RBC Distribution Width 13.5 % (11.5-14.5); Red Blood Cell (RBC) Count 3.33 mill/uL (4.20-5.40); White Blood Cell (WBC) Count 12.5 thou/uL (4.8-10.8)
[2017-12-24] MEDS: Prenatal Vitamin 1 TAB PO SCH (09:20)
[2017-12-24] MEDS: Ferrous Sulfate 325 MG TAB PO SCH ×2 (09:21→22:28)
--- NOTE | 2017-12-24 09:53 | PDOC.PP ---
Post Progress Note Post Day #: 2 Subjective: 42 yo @ 38.1 pp day 2 delivered via LTCS 12/07 nrfht with complication of pp hemorrhage and preeclampsia w/ severe features. Pt has been off magnesium for over 24 hours and reports she is doing well. Denies headache, cp, nvdc, abdominal pain outside her incision site and excessive vaginal bleeding. PO intake tolerated: yes Flatus: yes Ambulation: yes Vital Signs (12 hours) Temp Pulse Resp BP Pulse Ox 12/24/17 08:00 98.9 F 73 20 124/67 12/24/17 05:55 99.8 F H 12/24/17 04:30 100.0 F H 80 18 133/73 12/24/17 03:25 99.2 F 92 18 12/23/17 23:40 99.0 F 75 16 132/69 97 Weight Weight 79.832 kg - Physical Examination General: NAD Cardiovascular: no m/r/g, RRR Respiratory: clear to auscultation bilaterally, non-labored breathing Abdominal: + bowel sounds, lochia, appropriately TTP Neurological: no gross focal deficits Result Diagrams: 12/24/17 05:03 12/22/17 15:50 Additional Labs: Post Labs Blood Type O POSITIVE 12/21/17 12:54 Hep Bs Antigen Non-Reactive S/CO (NonReactive) 12/21/17 12:54 (1) Pre-eclampsia, severe, delivered Code(s): O14.10 - SEVERE PRE-ECLAMPSIA, UNSPECIFIED TRIMESTER Status: Acute Comment: Severe range BPs after delivery and UP/Cr ratio 1.5. Last labetolol dose 12/22, off magnesium over 24 hours. Pt BP has trended down and shows no signs of severe features. Will obs for 72 hours and if pressures remain stable ok for dc tomorrow (2) delivery delivered Code(s): O82 - ENCOUNTER FOR DELIVERY WITHOUT INDICATION Status: Acute Comment: PP course as anticipated thus far with minimal bleeding. PP hemaorrhage with ebl of 1000, pt has had minimal bleeding since. H&H stable, repeat in AM (3) AMA (advanced maternal age) multigravida 35+ Code(s): O09.529 - SUPERVISION OF ELDERLY MULTIGRAVIDA, UNSPECIFIED TRIMESTER Status: Acute QualifierTitle: Trimester: third trimester Qualified Code(s): O09.523 - Supervision of elderly multigravida, third trimester (4) hemorrhage Code(s): O72.1 - OTHER IMMEDIATE HEMORRHAGE Status: Acute Comment : H&H stable. Will repeat in am. <Blair Dorantes - Last Filed: 12/24/17 09:47> Vital Signs (12 hours) Temp Pulse Resp BP Pulse Ox 12/24/17 08:20 98.9 F 73 20 12/24/17 08:00 98.9 F 73 20 124/67 12/24/17 05:55 99.8 F H 12/24/17 04:30 100.0 F H 80 18 133/73 12/24/17 03:25 99.2 F 92 18 12/23/17 23:40 99.0 F 75 16 132/69 97 Weight Weight 79.832 kg Result Diagrams: 12/24/17 05:03 12/22/17 15:50 Additional Labs: Post Labs Blood Type O POSITIVE 12/21/17 12:54 Hep Bs Antigen Non-Reactive S/CO (NonReactive) 12/21/17 12:54 <Belkys Calderon - Last Filed: 12/24/17 10:18> Attending Addendum - Attending Addendum I personally evaluated the patient and discussed the management with Dr. Dorantes I agree with the History, Examination, Assessment and Plan documented above with any addition or exceptions noted below- Patient without complaints. Denies any TINOCO/visual changes. Afebrile BP 120-130/70-80s A/P: 1) POD#2 s/p 1* LCT C/S for NRFHTs- recovering well; continue routine care. 2) Pre-eclampsia with severe features: BP now normal; monitor for additional 24 hours. Anticipate d/c in AM. <Belkys Calderon - Last Filed: 12/24/17 10:18>
[2017-12-25] MEDS: HYDROcodone/Acetaminophen 5/325 mg Tablet PO PRN ×2 (04:57→14:00)
[2017-12-25 06:13] LABS: Hemoglobin 11.4 g/dL (12.0-16.0); Mean Corpuscular HGB CONC 31.5 g/dL (32.0-36.0); Mean Corpuscular Hemoglobin 30.5 pg (27.0-31.0); Mean Corpuscular Volume 96.8 fl (81.0-99.0); Mean Platelet Volume 7.5 fL (7.4-10.4); Platelet Count 262 thou/uL (130-400); RBC Distribution Width 13.4 % (11.5-14.5); Red Blood Cell (RBC) Count 3.75 mill/uL (4.20-5.40); White Blood Cell (WBC) Count 13.6 thou/uL (4.8-10.8)
--- NOTE | 2017-12-25 08:45 | PDOC.PP ---
Post Progress Note Post Day #: 4 Subjective: 42 yo F pp day 4 s/p ltcs 2/2 nrfhts. Pt reports pain is well controlled, passing gas, urinating normal, normal/scant bleeding. Denies headache, cp, sob, nvdc. Tolerating po. PO intake tolerated: yes Flatus: yes Ambulation: yes Vital Signs (12 hours) Temp Pulse Resp BP 12/25/17 08:14 98.2 F 76 20 140/76 12/25/17 08:10 98.2 F 76 20 12/25/17 05:00 98.5 F 74 18 130/75 12/25/17 04:00 98 F 75 18 12/25/17 00:00 98 F 75 18 12/24/17 21:00 98 F 75 18 138/78 Weight Weight 79.832 kg - Physical Examination General: NAD Cardiovascular: no m/r/g, RRR Respiratory: clear to auscultation bilaterally, non-labored breathing Abdominal: + bowel sounds, no distention, appropriately TTP Neurological: no gross focal deficits Result Diagrams: 12/25/17 05:18 12/22/17 15:50 Additional Labs: Post Labs Blood Type O POSITIVE 12/21/17 12:54 Hep Bs Antigen Non-Reactive S/CO (NonReactive) 12/21/17 12:54 (1) Pre-eclampsia, severe, delivered Code(s): O14.10 - SEVERE PRE-ECLAMPSIA, UNSPECIFIED TRIMESTER Status: Acute Comment: BP stable and trending down. OK for dc to home today. (2) delivery delivered Code(s): O82 - ENCOUNTER FOR DELIVERY WITHOUT INDICATION Status: Acute Comment: HH stable. VSS. Pt ok for dc today. (3) AMA (advanced maternal age) multigravida 35+ Code(s): O09.529 - SUPERVISION OF ELDERLY MULTIGRAVIDA, UNSPECIFIED TRIMESTER Status: Acute QualifierTitle: Trimester: third trimester Qualified Code(s): O09.523 - Supervision of elderly multigravida, third trimester (4) hemorrhage Code(s): O72.1 - OTHER IMMEDIATE HEMORRHAGE Status: Acute Comment : H&H stable. Ok for dc to home. Will recheck cs wound prior to dc <Blair Dorantes - Last Filed: 12/25/17 08:43> Vital Signs (12 hours) Temp Pulse Resp BP 12/25/17 11:59 98.3 F 68 20 141/68 H 12/25/17 08:14 98.2 F 76 20 140/76 12/25/17 08:10 98.2 F 76 20 12/25/17 05:00 98.5 F 74 18 130/75 12/25/17 04:00 98 F 75 18 Weight Weight 79.832 kg Result Diagrams: 12/25/17 05:18 12/22/17 15:50 Additional Labs: Post Labs Blood Type O POSITIVE 12/21/17 12:54 Hep Bs Antigen Non-Reactive S/CO (NonReactive) 12/21/17 12:54 <Belkys Calderon - Last Filed: 12/25/17 14:25> Attending Addendum - Attending Addendum I personally evaluated the patient and discussed the management with Dr. Dorantes I agree with the History, Examination, Assessment and Plan documented above with any addition or exceptions noted below- Patient without complaints. Denies any TINOCO, visual changes. Afebrile VSS. A/P: 1) POD#4 s/p 1* LCT C/S for NRFHTs- stable; plan to d/c home today. 2) Pre-eclampsia with severe features- BP stable ; d/c home today; follow-up at [facility] for BP check. <Belkys Calderon - Last Filed: 12/25/17 14:25>
[2017-12-25] MEDS: Prenatal Vitamin 1 TAB PO SCH (08:48)
[2017-12-25] MEDS: Ferrous Sulfate 325 MG TAB PO SCH (08:48)
[2017-12-25 12:00] VITALS: BP 141/68; TEMP 98.3
== END 2017-12-25 14:50 | disposition home or self-care (01) | DRG 766 ==
LOC: L&D/OP 11:31 → L&D 14:44 → 3SW 12-23 20:10
PROVIDERS: ADMIT Obstetrics & Gynecology; ATTEND Obstetrics & Gynecology
PROC: 10D00Z1 Extraction of Products of Conception, Low, Open Approach (ICD-10-PCS; principal; 2017-12-22)
PROC: 10907ZC Drainage of Amniotic Fluid, Therapeutic from Products of Conception, Via Natural or Artificial Opening (ICD-10-PCS; 2017-12-22)
PROC: 10H07YZ Insertion of Other Device into Products of Conception, Via Natural or Artificial Opening (ICD-10-PCS; 2017-12-22)
PROC: 10H073Z Insertion of Monitoring Electrode into Products of Conception, Via Natural or Artificial Opening (ICD-10-PCS; 2017-12-22)
PROC: 3E0P7VZ Introduction of Hormone into Female Reproductive, Via Natural or Artificial Opening (ICD-10-PCS; 2017-12-22)
DX: O13.4 Gestational [pregnancy-induced] hypertension without significant proteinuria, complicating childbirth (principal); O72.1 Other immediate postpartum hemorrhage; O76 Abnormality in fetal heart rate and rhythm complicating labor and delivery; Z3A.38 38 weeks gestation of pregnancy; Z37.0 Single live birth; O99.214 Obesity complicating childbirth; O14.15 Severe pre-eclampsia, complicating the puerperium; O62.1 Secondary uterine inertia; Z68.32 Body mass index [BMI] 32.0-32.9, adult
CPT/HCPCS: 36415; 51702; 76815; 80053; 81001; 82570; 82805; 83615; 84156; 84550; 85027; 86780; 86850; 86900; 86901; 87340; 88307; 90715; 99285; J0131; J0456; J0670; J1885; J2001; J2175; J2210; J2270; J2274; J2405; J2590; J3010; J3475; J3490; J7050

== ENCOUNTER 2018-05-18 21:50 | Emergency (ER) | payer MEDICAID, SELFPAY ==
[2018-05-18 22:13] LABS: Pregnancy Test - Urine (BHCG) POSITIVE (Negative); Pregu Control Background? CLEAR/WHITE (CLR/WHITE); Pregu Control Bar Appear? YES (CONTROL BAR)
[2018-05-18 22:15] LABS: Bilirubin Negative (Negative); Blood, Urine Large (Negative); Clarity CLOUDY (Clear); Glucose, Urine (Dipstick) Negative (Negative); Leukocyte Trace (Negative); Nitrite Negative (Negative); Protein, Urine (Dipstick) Trace mg/dL (Neg-Trace); Specific Gravity, Urine 1.026 (1.002-1.036); Urobilinogen 0.2 mg/dL (0.2-1.0); pH, Urine 6.5 (5.0-9.0)
[2018-05-18 22:18] LABS: Specific Gravity 1.026 (1.002-1.036)
[2018-05-18 22:21] LABS: Bacteria/HPF None Seen HPF (None Seen); Hyaline Casts/LPF 0-3 HYALINE CAST LPF (0-3 Hyaline); Pathc Cast-AUWi Flag 0.14 (0-2.49); RBC/HPF GREATER THAN 50-TNTC HPF (0-3); Squamous Epithelial 0-3 HPF (0-3); WBC/HPF 0-3 HPF (0-3)
[2018-05-18 22:38] LABS: #Basophils 0.1 thou/uL (0.0-0.2); #Eosinphils 0.1 thou/uL (0.0-0.7); #Lymphocytes 3.1 thou/uL (1.20-3.40); #Monocytes 0.6 thou/uL (0.11-0.59); #Neutrophils 5.4 thou/uL (1.40-6.50); %Basophils 0.7 % (0.0-1.0); %Eosinophils 0.7 % (0.0-10.0); %Neutrophils 58.7 % (42.0-75.0); Hemoglobin 14.4 g/dL (12.0-16.0); Mean Corpuscular HGB CONC 33.8 g/dL (32.0-36.0); Mean Corpuscular Hemoglobin 30.8 pg (27.0-31.0); Mean Corpuscular Volume 91.2 fL (78.0-98.0); Mean Platelet Volume 6.8 fL (7.4-10.4); Platelet Count 241 thou/uL (130-400); RBC Distribution Width 12.4 % (11.5-14.5); Red Blood Cell (RBC) Count 4.67 mill/uL (4.20-5.40); White Blood Cell (WBC) Count 9.2 thou/uL (4.8-10.8)
--- NOTE | 2018-05-19 12:25 | ULT ---
PRELIMINARY REPORT/[facility]/EMERGENTY AFTER-HOURS PROCEDURE US First Trimester, Transabdominal US , Transvaginal US Duplex Arterial/Venous of the Pelvis, Complete CLINICAL HISTORY: 42 years old, female; Signs and symptoms; Lmp or gestational age (in weeks): Unsure; Other: Vag bleed ing; TECHNIQUE: Real-time transabdominal and transvaginal obstetrical ultrasound of the maternal pelvis and a first t rimester with image documentation. Transvaginal imaging was used for better evaluation of t he fetus and adnexa. Real-time duplex ultrasound scan of the pelvis integrating B-mode two-dimensional vascular structure, Doppler spectral analysis and color flow Doppler imaging. COMPARISON: No relevant prior studies available. FINDINGS: Transvaginal ultrasound was limited for evaluation of the endometrium and uterus due to artifacts. Therefore transabdominal ultrasound was performed for further evaluation. Duplex ultrasound scan with color Doppler flow and spectral waveform analysis was also performed for evaluation of pelvic and ov [place] blood flow and torsion. Gestation: Single intrauterine gestational sac, probable yolk sac and pole (CRL: 0.53cm-6w2d) s een on transabdominal ultrasound without heart motion detected, suspicious for failur e given the size of the pole. Uterus/cervix: Thickened endometrium. Large cervical mass measuring about 5 cm. Small myometrial mass measuring 1.2 cm that may represent an intramural fibroid. Right ovary: No acute findings. No mass. Normal blood flow. No evidence of torsion. Left ovary: No acute findings. No mass. Normal blood flow. No evidence of torsion. Free fluid: Trace. IMPRESSION: Findings suspicious for failed . Large cervical mass that may represent a fibroid. Recommend [facility] consult. THIS REPORT CONTAINS FINDINGS THAT MAY BE CRITICAL TO PATIENT CARE. The findings were verbally commun icated via telephone conference with COLLIN KOO at 1:38 AM CDT on 05/19/2018. The findings were ackn owledged and understood. Thank you for allowing us to participate in the care of your patient. Dictated and Authenticated by: Norm Marcum MD 05/19/2018 2:05 AM Central Time ([place] & [place]) FINAL REPORT EMERGENCY AFTER HOURS PELVIC ULTRASOUND: Date: 05/19/18 IMPRESSION: I agree with the preliminary interpretation given by Maycol. heart tones are not demonstrated involving an approximately 6 weeks and 2 days intrauterine ges tation, which may reflect failed . POS: [facility]
[2018-05-20 22:44] LABS: Chlamydia by PCR Not Detected (NotDetected); GC by PCR Not Detected (NotDetected)
== END 2018-05-19 02:10 | disposition home or self-care (01) ==
LOC: ERS 21:50
DX: O03.4 Incomplete spontaneous abortion without complication (principal); D36.7 Benign neoplasm of other specified sites; I10 Essential (primary) hypertension
CPT/HCPCS: 36415; 76856; 81003; 81015; 81025; 84702; 85025; 87480; 87491; 87510; 87591; 87660

== ENCOUNTER 2019-04-09 08:31 | Outpatient (CLI) | payer OTHER ==
--- NOTE | 2019-04-09 09:44 | MMO ---
Bilateral MAMMO Bilat Screen [facility]. CLINICAL HISTORY: Patient is 43 years old and is seen for screening. The patient has no family history of breast cancer. The patient has no personal history of cancer. VIEWS: The views performed were: bilateral craniocaudal and bilateral mediolateral oblique. FILMS COMPARED: The present examination has been compared to a prior imaging study performed at [facility] on 08/24/2014. This study has been interpreted with the assistance of computer-aided detection. MAMMOGRAM FINDINGS: The breasts are heterogeneously dense, which could obscure a lesion on mammography. Finding 1: There are stable benign appearing calcifications seen in both breasts. Finding 2: There are stable benign appearing densities seen in both breasts. There are no suspicious masses, suspicious calcifications, or new areas of architectural distortion. IMPRESSION: THERE IS NO MAMMOGRAPHIC EVIDENCE OF MALIGNANCY. A ROUTINE FOLLOW-UP MAMMOGRAM IN 1 YEAR IS RECOMMENDED. ACR BI-RADS Category 2 - Benign finding MAMMOGRAPHY NOTE: 1. A negative mammogram report should not delay a biopsy if a dominant of clinically suspicious mass is present. 2. Approximately 10% to 15% of breast cancers are not detected by mammography. 3. Adenosis and dense breasts may obscure an underlying neoplasm.
== END 2019-04-09 08:32 | disposition home or self-care (01) ==
LOC: SCSMAMMO 08:31 → EDSTATUS 09:00
PROVIDERS: ATTEND Advanced Practice Midwife
DX: Z12.31 Encounter for screening mammogram for malignant neoplasm of breast (principal)
CPT/HCPCS: 77067